=== PATIENT | male | born 1970 | race Caucasian/White ===

== ENCOUNTER 2016-08-12 16:01 | Emergency (ER) | payer MEDICARE, MEDICAID ==
[2016-03-12 09:58] VITALS: BMI 28.1
[~2016-08-12 16:01] MED LIST: ACETAMINOPHEN325 MG PO; ARTIFICIAL TEAR15 ML EACH EYE; ASCORBIC ACID500 MG PO; BACLOFEN20 M1 PO; DANTRIUM25 MG PO; DILANTIN100 MG PO; DULCOLAX10 MG/SUPP RC; EFFEXOR37.5 MG PO; GUAIFENESI100 MG/5 M PO; KEPPRA750 MG PO; KRISTALOSE20 G/PKT PO; LASIX80 MG PO; LIDOCAINE 2 %100 ML PO; LIDOCAINE50 GM TOPICAL; MILK OF MAGNESI30 ML PO; MIRALAX17 GM PO; NATURAL SENNA8.6 MG PO; NEURONTIN 300300 MG PO; NEURONTIN 400400 MG PO; OMEPRAZOLE20 M1 PO; OXYCONTIN10 MG PO; POTASSIUM20 MEQ/11 PO; PROVENTIL/2.5 MG/3 M INH; ROBINUL 1 MG TAB1 MG PO; SEROQUEL25 MG PO; SEROQUEL50 MG PO; THEREMS-M1 TAB PO; VALIUM 2 MG TAB2 MG PO; ZANAFLEX4 MG; ZOFRAN4 MG PO; [UNRECOGNIZED DRUG - OTHER] IV
[2016-08-12 17:11] LABS: APPEARANCE HAZY (CLEAR); BILIRUBIN NEGATIVE (NEGATIVE); COLOR YELLOW (YELLOW); GLUCOSE NEGATIVE (NEGATIVE); KETONE NEGATIVE (NEGATIVE); LEUKOCYTE ESTERASE 2+ (NEGATIVE); NITRITE NEGATIVE (NEGATIVE); PROTEIN NEGATIVE (NEGATIVE); UROBILINOGEN NORMAL (NORMAL)
[2016-08-12 17:14] LABS: BACTERIA MODERATE /hpf (NONE SEEN); EPITHELIAL CELLS 0-5 /hpf (0-5); RED CELLS - URINE 0-5 /hpf (0-5); WHITE CELLS - URINE 25-50 /hpf (0-5); YEAST <1+ /hpf (NONE SEEN)
[2016-08-12 17:22] LABS: BASOPHILS 0.2 % (0.0-2.0); EOSINOPHILS 1.5 % (0-7); HEMATOCRIT 39.9 % (42.0-54.0); HEMOGLOBIN 12.8 g/dL (13.5-17.5); IMMATURE GRANULOCYTES 0.3 % (0-5); LYMPHOCYTES 19.5 % (15-50); MCHC 32.1 g/dL (31.0-37.0); MCV 99.8 fL (80.0-100.0); MEAN PLATELET VOLUME 10.8 fL (7.4-10.4); MONOCYTES 6.4 % (2-11); NEUTROPHILS 72.1 % (40-80); RDW 14.6 % (11.5-14.5); WBC 13.9 10x3/uL (4.8-10.8)
[2016-08-12 17:28] LABS: PLATELET COUNT 177 10x3/uL (130-400)
[2016-08-12 17:40] LABS: ALKALINE PHOSPHATASE 62 U/L (46-116); ALT (SGPT) 28 U/L (10-68); CALC OSMOLALITY 290 mosm/kg (275-300); CARBON DIOXIDE 26.9 mmol/L (21.0-32.0); CHLORIDE - SERUM 107 mmol/L (98-107); CREATININE - SERUM 0.6 mg/dL (0.6-1.3); GLUCOSE 82 mg/dL (74-106); POTASSIUM - SERUM 3.5 mmol/L (3.5-5.1); PROTEIN - SERUM 7.6 g/dL (6.4-8.2); SODIUM 145 mmol/L (136-145); UREA NITROGEN 21 mg/dL (7-18); eGFR NON AFRICAN AMERICAN > 90 mL/min (90-120)
[2016-08-12 17:48] LABS: AMYLASE - SERUM 47 U/L (25-115); LIPASE 110 U/L (73-393); PHENYTOIN (DILANTIN) 6.1 ug/mL (10.0-20.0); PRO BNP 719 pg/mL (0-125); TROPONIN-I < 0.017 ng/mL (0.000-0.060)
== END 2016-08-12 19:14 | disposition home or self-care (01) ==
LOC: D.ER 16:01
PROVIDERS: Family Medicine
DX: H53.9 Unspecified visual disturbance (principal); Z93.3 Colostomy status; K21.9 Gastro-esophageal reflux disease without esophagitis; F41.9 Anxiety disorder, unspecified; F32.9 Major depressive disorder, single episode, unspecified

== ENCOUNTER 2017-12-04 15:53 | Inpatient (IN) | payer MEDICARE, MEDICAID ==
[~2017-12-04] VITALS: Ht 177.8 cm; Wt 119.1 kg
[2017-12-04] VITALS (8 sets, daily range): BP systolic 108–148; BP diastolic 64–84; BMI 34.5
--- NOTE | ~2017-12-04 | EC ---
PATIENT:FABRIZIO BAUTISTA DATE OF SERVICE: 12/04/17 SEX: M MEDICAL RECORD: [id number] DATE OF : [birth year] LOCATION:D.[facility] D.230 AGE OF PATIENT: 47 ADMISSION DATE: 12/04/17 REFERRING PHYSICIAN: INTERPRETING PHYSICIAN: CAYDEN PERDOMO MD ECHOCARDIOGRAM REPORT ECHO CHARGES 5 ECHO LIMITED Date: 12/06 CLINICAL DIAGNOSIS: BILTERAL DVTS ASSESS FOR CLOTS ECHOCARDIOGRAPHIC MEASUREMENTS (adult normal given) AC root (d.<3.7cm) 3.7 cm LV Septum d (<1.2 cm> 1.2 cm Valve Excursion cm LV Septum (systole) 1.7 cm Left Atria (s.<4.0cm> 4.1 cm LVPW d(<1.2cm) 1.5 cm RV (d.<2.3cm) 3.7 cm LVPW (sytole) 1.9 cm LV diastole(<5.6CM) 4.1 cm MV E-F(>70mm/sec) cm LV systole 2.6 cm LVOT Diameter cm MV exc.(>10mm) cm Est.ejection fraction (50-75%) % DOPPLER: LVIT cm/sec A cm/sec E cm/sec LA cm/sec RVSP 19 mmHg LVOT cm/sec AOP1/2T m/s Asc. Ao cm/sec RVOT 68 cm/sec RA cm/sec PA 99 cm/sec AV Gradient Peak mmHg AV Mean mmHg AV Area cm MV Gradient Peak mmHg MV Mean mmHg MV Area cm COMMENTS: Track Repairer: 2 RADHA MORAES Personal Finance Instructor: 4 Dr. Perdomo TAPE# PACS Pericardial Effusion N DATE OF SERVICE: The patient underwent limited echocardiogram showing normal left ventricular function. Left atrium is mildly dilated, but grossly the aortic valve, mitral valve, and tricuspid valve are normal. The RVSP appears to be normal. Right ventricle is mildly dilated. Right atrium is mildly dilated. It is a limited study, but otherwise grossly normal function. We did not see any obvious clots or rouleaux formation; however, a transesophageal echocardiogram may be more specific if clinically helpful. ECHOCARDIOGRAM REPORT [id number] FABRIZIO BAUTISTA TRANSINT:[id number] Voice Confirmation ID: [id number] DOCUMENT ID: [id number] CAYDEN PERDOMO MD at 1120 CC: [id number] DICTATION DATE: 12/06/17 1546 VAMP STITCHER: 12/06/17 1603 ADM IN [place] [id number] [facility], [id number]
[~2017-12-04 15:53] MED LIST changes: +DILANTIN100 MG PEG; -DILANTIN100 MG PO; +KEPPRA500 MG PEG; -KEPPRA750 MG PO
[2017-12-04] MEDS ORDERED: ROBITUSSIN DM 110 ML PEG (16:27)
[2017-12-04] MEDS ORDERED: ATIVAN0.5 MG PEG (16:31)
[2017-12-04] MEDS ORDERED: BENADRYL25 MG PEG (16:33)
[2017-12-04] MEDS ORDERED: OMNICEF300 MG PEG (16:34)
[2017-12-04] MEDS ORDERED: IBUDONE 10-2001 TAB PEG ×2 (16:37→16:38)
[2017-12-04] MEDS ORDERED: PHENERGAN25 M1 PEG (16:45)
[2017-12-04 17:37] LABS: BASOPHILS 0.1 % (0-2); EOSINOPHILS 3.3 % (0-7); HEMATOCRIT 40.4 % (42.0-54.0); HEMOGLOBIN 12.9 g/dL (13.5-17.5); IMMATURE GRANULOCYTES 0.7 % (0-5); LYMPHOCYTES 16.7 % (15-50); MCH 31.4 pg (26.0-34.0); MCHC 31.9 g/dL (31.0-37.0); MCV 98.3 fL (80.0-100.0); MEAN PLATELET VOLUME 10.5 fL (7.4-10.4); MONOCYTES 9.1 % (2-11); NEUTROPHILS 70.1 % (40-80); PLATELET COUNT 200 10x3/uL (130-400); RBC 4.11 10x6/uL (4.20-6.10); RDW 15.4 % (11.5-14.5)
[2017-12-04 18:05] LABS: ALBUMIN 2.8 g/dL (3.4-5.0); ALKALINE PHOSPHATASE 86 U/L (46-116); ALT (SGPT) 19 U/L (10-68); BILIRUBIN - TOTAL 0.35 mg/dL (0.2-1.3); CALC OSMOLALITY 283 mosm/kg (275-300); CALCIUM 9.2 mg/dL (8.5-10.1); CARBON DIOXIDE 27.9 mmol/L (21.0-32.0); CHLORIDE - SERUM 106 mmol/L (98-107); CREATININE - SERUM 0.4 mg/dL (0.6-1.3); GLUCOSE 91 mg/dL (74-106); POTASSIUM - SERUM 4.9 mmol/L (3.5-5.1); SODIUM 143 mmol/L (136-145); UREA NITROGEN 10 mg/dL (7-18); eGFR NON AFRICAN AMERICAN > 90 mL/min (90-120)
[2017-12-04] MEDS ORDERED: THORAZINE25 MG PO ×2 (21:03→21:23)
[2017-12-04] MEDS ORDERED: GUAIFENESI100 MG/5 M PO ×2 (21:15→21:44)
[2017-12-04] MEDS ORDERED: ACETAMINOPHEN325 MG PO (21:16)
[2017-12-04] MEDS ORDERED: LASIX80 MG PO ×2 (21:17→21:31)
[2017-12-04] MEDS ORDERED: PHENYTOIN100 MG/4 M PEG (21:19)
[2017-12-04] MEDS ORDERED: KEPPRA500 MG PO (21:20)
[2017-12-04] MEDS ORDERED: POTASSIUM40 MEQ/15 PO (21:21)
[2017-12-04] MEDS ORDERED: SENNA8.6 MG PO (21:21)
[2017-12-04] MEDS ORDERED: EFFEXOR37.5 MG PO (21:22)
[2017-12-04] MEDS ORDERED: ASCORBIC ACID500 MG PO (21:23)
[2017-12-04] MEDS ORDERED: IBUPROFEN200 MG PO ×2 (21:24→21:41)
[2017-12-04] MEDS ORDERED: BACLOFEN20 M1 PO (21:25)
[2017-12-04] MEDS ORDERED: ZANAFLEX4 MG PO (21:25)
[2017-12-04] MEDS ORDERED: NEURONTIN 300300 MG PO (21:26)
[2017-12-04] MEDS ORDERED: DANTRIUM25 MG PO (21:26)
[2017-12-04] MEDS ORDERED: SEROQUEL25 MG PO (21:27)
[2017-12-04] MEDS ORDERED: OMNICEF300 MG PO (21:27)
[2017-12-04] MEDS ORDERED: ATIVAN0.5 MG PO (21:28)
[2017-12-04] MEDS ORDERED: PHENYTOIN100 MG/4 M PO (21:29)
[2017-12-04] MEDS ORDERED: SEROQUEL50 MG PO (21:29)
[2017-12-04] MEDS ORDERED: POTASSIUM20 MEQ/15 PO (21:32)
[2017-12-04] MEDS ORDERED: MILK OF MAGNESI30 ML PO (21:33)
[2017-12-04] MEDS ORDERED: MIRALAX17 GM PO (21:34)
[2017-12-04] MEDS ORDERED: BENADRYL25 MG PO (21:36)
[2017-12-04] MEDS ORDERED: MAXIFED DM LIQ473 ML PO (21:36)
[2017-12-04] MEDS ORDERED: NEURONTIN 300300 MG PEG (21:37)
[2017-12-04] MEDS ORDERED: ARTIFICIAL TEAR15 ML EACH EYE (21:40)
[2017-12-04] MEDS ORDERED: IMODIUM2 MG PO (21:41)
[2017-12-04] MEDS ORDERED: MAALOX ADVANCE355 ML PO (21:42)
[2017-12-04] MEDS ORDERED: PHENERGAN25 MG/ML IM (21:43)
[2017-12-04] MEDS ORDERED: PHENERGAN25 M1 PO (21:44)
[2017-12-04] MEDS ORDERED: APAP325 MG PO (21:45)
[2017-12-04] MEDS ORDERED: ZOFRAN4 MG PO (21:45)
[2017-12-05] VITALS (25 sets, daily range): BP systolic 86–160; BP diastolic 60–94; Ht 177.8 cm; Wt 119.1 kg
[2017-12-05 04:43] LABS: CALC OSMOLALITY 285 mosm/kg (275-300); CALCIUM 9.3 mg/dL (8.5-10.1); CARBON DIOXIDE 26.4 mmol/L (21.0-32.0); CHLORIDE - SERUM 105 mmol/L (98-107); CREATININE - SERUM 0.3 mg/dL (0.6-1.3); GLUCOSE 98 mg/dL (74-106); POTASSIUM - SERUM 4.3 mmol/L (3.5-5.1); SODIUM 144 mmol/L (136-145); UREA NITROGEN 9 mg/dL (7-18); eGFR NON AFRICAN AMERICAN > 90 mL/min (90-120)
[2017-12-05 05:03] LABS: BASOPHILS 0.2 % (0-2); EOSINOPHILS 2.3 % (0-7); HEMOGLOBIN 13.3 g/dL (13.5-17.5); IMMATURE GRANULOCYTES 0.6 % (0-5); LYMPHOCYTES 9.9 % (15-50); MCH 31.9 pg (26.0-34.0); MCHC 32.4 g/dL (31.0-37.0); MCV 98.3 fL (80.0-100.0); MEAN PLATELET VOLUME 9.6 fL (7.4-10.4); MONOCYTES 6.9 % (2-11); NEUTROPHILS 80.1 % (40-80); RBC 4.17 10x6/uL (4.20-6.10); RDW 15.1 % (11.5-14.5)
[2017-12-05 05:05] LABS: PLATELET COUNT 256 10x3/uL (130-400); WBC 13.3 10x3/uL (4.8-10.8)
[2017-12-06] VITALS (23 sets, daily range): BP systolic 97–157; BP diastolic 54–87
[2017-12-06 04:08] LABS: BASOPHILS 0.2 % (0-2); EOSINOPHILS 1.3 % (0-7); HEMATOCRIT 37.6 % (42.0-54.0); HEMOGLOBIN 11.9 g/dL (13.5-17.5); IMMATURE GRANULOCYTES 1.1 % (0-5); LYMPHOCYTES 22.9 % (15-50); MCHC 31.6 g/dL (31.0-37.0); MCV 97.9 fL (80.0-100.0); MEAN PLATELET VOLUME 9.8 fL (7.4-10.4); MONOCYTES 10.2 % (2-11); NEUTROPHILS 64.3 % (40-80); PLATELET COUNT 258 10x3/uL (130-400); RBC 3.84 10x6/uL (4.20-6.10); RDW 14.9 % (11.5-14.5); WBC 10.2 10x3/uL (4.8-10.8)
[2017-12-06 04:19] LABS: ALBUMIN 2.6 g/dL (3.4-5.0); ALKALINE PHOSPHATASE 75 U/L (46-116); ALT (SGPT) 15 U/L (10-68); BILIRUBIN - TOTAL 0.34 mg/dL (0.2-1.3); CARBON DIOXIDE 27.2 mmol/L (21.0-32.0); CHLORIDE - SERUM 105 mmol/L (98-107); GLUCOSE 104 mg/dL (74-106); MAGNESIUM - SERUM 1.9 mg/dL (1.8-2.4); PHOSPHOROUS 2.8 mg/dL (2.5-4.9); PROTEIN - SERUM 7.6 g/dL (6.4-8.2); SODIUM 143 mmol/L (136-145)
[2017-12-06 04:28] LABS: CALC OSMOLALITY 284 mosm/kg (275-300); CREATININE - SERUM 0.5 mg/dL (0.6-1.3); UREA NITROGEN 12 mg/dL (7-18); eGFR NON AFRICAN AMERICAN > 90 mL/min (90-120)
[2017-12-07] VITALS (23 sets, daily range): BP systolic 93–125; BP diastolic 59–83
[2017-12-07 04:52] LABS: BASOPHILS 0.4 % (0-2); HEMATOCRIT 37.6 % (42.0-54.0); HEMOGLOBIN 12.4 g/dL (13.5-17.5); IMMATURE GRANULOCYTES 1.4 % (0-5); LYMPHOCYTES 24.9 % (15-50); MCH 31.9 pg (26.0-34.0); MCV 96.7 fL (80.0-100.0); MEAN PLATELET VOLUME 9.6 fL (7.4-10.4); NEUTROPHILS 56.3 % (40-80); PLATELET COUNT 288 10x3/uL (130-400); RBC 3.89 10x6/uL (4.20-6.10); RDW 14.9 % (11.5-14.5); WBC 8.5 10x3/uL (4.8-10.8)
[2017-12-07 05:00] LABS: ALBUMIN 2.7 g/dL (3.4-5.0); ALKALINE PHOSPHATASE 73 U/L (46-116); BILIRUBIN - TOTAL 0.25 mg/dL (0.2-1.3); CALC OSMOLALITY 289 mosm/kg (275-300); CALCIUM 9.2 mg/dL (8.5-10.1); CARBON DIOXIDE 30.6 mmol/L (21.0-32.0); CHLORIDE - SERUM 107 mmol/L (98-107); CREATININE - SERUM 0.5 mg/dL (0.6-1.3); GLUCOSE 94 mg/dL (74-106); MAGNESIUM - SERUM 1.9 mg/dL (1.8-2.4); PHOSPHOROUS 2.9 mg/dL (2.5-4.9); POTASSIUM - SERUM 3.3 mmol/L (3.5-5.1); PROTEIN - SERUM 7.9 g/dL (6.4-8.2); SODIUM 146 mmol/L (136-145); UREA NITROGEN 11 mg/dL (7-18); eGFR NON AFRICAN AMERICAN > 90 mL/min (90-120)
[2017-12-07 05:13] LABS: ALT (SGPT) 25 U/L (10-68)
[2017-12-07 16:09] LABS: AFB SPECIMEN PROCESSING Concentration (())
[2017-12-08] VITALS (24 sets, daily range): BP systolic 89–116; BP diastolic 57–79
[2017-12-08 05:58] LABS: BASOPHILS 0.1 % (0-2); EOSINOPHILS 2.3 % (0-7); HEMATOCRIT 38.7 % (42.0-54.0); HEMOGLOBIN 12.9 g/dL (13.5-17.5); IMMATURE GRANULOCYTES 0.8 % (0-5); LYMPHOCYTES 12.5 % (15-50); MCH 32.3 pg (26.0-34.0); MCHC 33.3 g/dL (31.0-37.0); MCV 96.8 fL (80.0-100.0); MEAN PLATELET VOLUME 9.7 fL (7.4-10.4); MONOCYTES 7.2 % (2-11); NEUTROPHILS 77.1 % (40-80); PLATELET COUNT 331 10x3/uL (130-400); WBC 10.3 10x3/uL (4.8-10.8)
[2017-12-08 06:35] LABS: ALBUMIN 2.7 g/dL (3.4-5.0); ALKALINE PHOSPHATASE 71 U/L (46-116); ALT (SGPT) 19 U/L (10-68); BILIRUBIN - TOTAL 0.22 mg/dL (0.2-1.3); CALC OSMOLALITY 292 mosm/kg (275-300); CALCIUM 9.2 mg/dL (8.5-10.1); CARBON DIOXIDE 30.1 mmol/L (21.0-32.0); CHLORIDE - SERUM 108 mmol/L (98-107); CREATININE - SERUM 0.5 mg/dL (0.6-1.3); GLUCOSE 136 mg/dL (74-106); POTASSIUM - SERUM 3.7 mmol/L (3.5-5.1); PROTEIN - SERUM 8.1 g/dL (6.4-8.2); SODIUM 147 mmol/L (136-145); UREA NITROGEN 10 mg/dL (7-18); eGFR NON AFRICAN AMERICAN > 90 mL/min (90-120)
[2017-12-09] VITALS (23 sets, daily range): BP systolic 94–134; BP diastolic 56–87
[2017-12-09 05:14] LABS: ALBUMIN 2.7 g/dL (3.4-5.0); ALKALINE PHOSPHATASE 60 U/L (46-116); ALT (SGPT) 17 U/L (10-68); CALC OSMOLALITY 291 mosm/kg (275-300); CALCIUM 8.8 mg/dL (8.5-10.1); CARBON DIOXIDE 30.7 mmol/L (21.0-32.0); CHLORIDE - SERUM 109 mmol/L (98-107); CREATININE - SERUM 0.4 mg/dL (0.6-1.3); GLUCOSE 120 mg/dL (74-106); POTASSIUM - SERUM 3.3 mmol/L (3.5-5.1); PROTEIN - SERUM 7.9 g/dL (6.4-8.2); SODIUM 146 mmol/L (136-145); eGFR NON AFRICAN AMERICAN > 90 mL/min (90-120)
[2017-12-09 05:29] LABS: UREA NITROGEN 13 mg/dL (7-18)
[2017-12-09 13:15] LABS: FUNGUS STAIN Final report (())
[2017-12-10] VITALS (25 sets, daily range): BP systolic 104–166; BP diastolic 63–96
[2017-12-10 05:12] LABS: BASOPHILS 0.3 % (0-2); EOSINOPHILS 6.1 % (0-7); HEMATOCRIT 39.4 % (42.0-54.0); HEMOGLOBIN 12.7 g/dL (13.5-17.5); IMMATURE GRANULOCYTES 1.9 % (0-5); MCH 31.3 pg (26.0-34.0); MCHC 32.2 g/dL (31.0-37.0); MEAN PLATELET VOLUME 9.9 fL (7.4-10.4); MONOCYTES 10.8 % (2-11); NEUTROPHILS 55.9 % (40-80); PLATELET COUNT 316 10x3/uL (130-400); RBC 4.06 10x6/uL (4.20-6.10); RDW 15.1 % (11.5-14.5); WBC 8.6 10x3/uL (4.8-10.8)
[2017-12-10 05:41] LABS: ALBUMIN 2.8 g/dL (3.4-5.0); ALKALINE PHOSPHATASE 61 U/L (46-116); ALT (SGPT) 18 U/L (10-68); CALC OSMOLALITY 294 mosm/kg (275-300); CALCIUM 8.9 mg/dL (8.5-10.1); CARBON DIOXIDE 29.3 mmol/L (21.0-32.0); CHLORIDE - SERUM 108 mmol/L (98-107); CREATININE - SERUM 0.5 mg/dL (0.6-1.3); GLUCOSE 118 mg/dL (74-106); POTASSIUM - SERUM 3.6 mmol/L (3.5-5.1); PROTEIN - SERUM 8.1 g/dL (6.4-8.2); SODIUM 147 mmol/L (136-145); eGFR NON AFRICAN AMERICAN > 90 mL/min (90-120)
[2017-12-10 05:52] LABS: UREA NITROGEN 17 mg/dL (7-18)
[2017-12-10 22:10] LABS: AFB SPECIMEN PROCESSING Concentration (())
[2017-12-11] VITALS (25 sets, daily range): BP systolic 89–132; BP diastolic 46–80
[2017-12-11 04:55] LABS: BASOPHILS 0.4 % (0-2); EOSINOPHILS 6.2 % (0-7); HEMOGLOBIN 13.8 g/dL (13.5-17.5); IMMATURE GRANULOCYTES 1.9 % (0-5); LYMPHOCYTES 25.5 % (15-50); MCH 31.7 pg (26.0-34.0); MCHC 32.9 g/dL (31.0-37.0); MCV 96.6 fL (80.0-100.0); MEAN PLATELET VOLUME 9.9 fL (7.4-10.4); MONOCYTES 8.8 % (2-11); NEUTROPHILS 57.2 % (40-80); RBC 4.35 10x6/uL (4.20-6.10); RDW 15.2 % (11.5-14.5); WBC 10.7 10x3/uL (4.8-10.8)
[2017-12-11 05:13] LABS: CALCIUM 9.1 mg/dL (8.5-10.1); CARBON DIOXIDE 28.8 mmol/L (21.0-32.0); CHLORIDE - SERUM 106 mmol/L (98-107); CREATININE - SERUM 0.6 mg/dL (0.6-1.3); GLUCOSE 122 mg/dL (74-106); SODIUM 148 mmol/L (136-145); eGFR NON AFRICAN AMERICAN > 90 mL/min (90-120)
[2017-12-11 05:15] LABS: CALC OSMOLALITY 297 mosm/kg (275-300); UREA NITROGEN 22 mg/dL (7-18)
[2017-12-11 05:16] LABS: PLATELET COUNT 399 10x3/uL (130-400)
[2017-12-11 15:25] LABS: FUNGUS STAIN Final report (())
[2017-12-12] VITALS (25 sets, daily range): BP systolic 90–133; BP diastolic 54–108
[2017-12-12 03:32] LABS: BASOPHILS 0.8 % (0-2); EOSINOPHILS 4.7 % (0-7); HEMATOCRIT 36.7 % (42.0-54.0); HEMOGLOBIN 12.5 g/dL (13.5-17.5); IMMATURE GRANULOCYTES 0.6 % (0-5); LYMPHOCYTES 24.3 % (15-50); MCH 31.3 pg (26.0-34.0); MCHC 34.1 g/dL (31.0-37.0); MEAN PLATELET VOLUME 10.6 fL (7.4-10.4); NEUTROPHILS 57.6 % (40-80); RDW 14.2 % (11.5-14.5)
[2017-12-12 03:35] LABS: MCV 91.8 fL (80.0-100.0); PLATELET COUNT 243 10x3/uL (130-400); WBC 6.4 10x3/uL (4.8-10.8)
[2017-12-12 03:39] LABS: ANION GAP 10.7 mmol/L (8-16); CALCIUM 8.2 mg/dL (8.5-10.1); CARBON DIOXIDE 31.4 mmol/L (21.0-32.0); POTASSIUM - SERUM 3.1 mmol/L (3.5-5.1)
[2017-12-12 03:40] LABS: CREATININE - SERUM 1.3 mg/dL (0.6-1.3)
[2017-12-13] VITALS (22 sets, daily range): BP systolic 95–121; BP diastolic 58–91
[2017-12-13 03:53] LABS: BASOPHILS 0.4 % (0-2); EOSINOPHILS 7.7 % (0-7); HEMATOCRIT 36.7 % (42.0-54.0); HEMOGLOBIN 11.9 g/dL (13.5-17.5); IMMATURE GRANULOCYTES 2.2 % (0-5); LYMPHOCYTES 33.2 % (15-50); MCH 31.3 pg (26.0-34.0); MCHC 32.4 g/dL (31.0-37.0); MONOCYTES 11.9 % (2-11); NEUTROPHILS 44.6 % (40-80); RDW 15.1 % (11.5-14.5); WBC 7.4 10x3/uL (4.8-10.8)
[2017-12-13 03:59] LABS: MCV 96.6 fL (80.0-100.0); PLATELET COUNT 366 10x3/uL (130-400)
[2017-12-13 04:02] LABS: CALCIUM 8.6 mg/dL (8.5-10.1); CARBON DIOXIDE 28.1 mmol/L (21.0-32.0); CHLORIDE - SERUM 109 mmol/L (98-107); POTASSIUM - SERUM 3.5 mmol/L (3.5-5.1); SODIUM 144 mmol/L (136-145)
[2017-12-13 04:07] LABS: CALC OSMOLALITY 288 mosm/kg (275-300); CREATININE - SERUM 0.3 mg/dL (0.6-1.3); GLUCOSE 103 mg/dL (74-106); UREA NITROGEN 17 mg/dL (7-18); eGFR NON AFRICAN AMERICAN > 90 mL/min (90-120)
[2017-12-14] VITALS (23 sets, daily range): BP systolic 96–140; BP diastolic 53–879
[2017-12-14 06:13] LABS: BASOPHILS 0.3 % (0-2); HEMATOCRIT 35.6 % (42.0-54.0); HEMOGLOBIN 11.5 g/dL (13.5-17.5); IMMATURE GRANULOCYTES 0.9 % (0-5); LYMPHOCYTES 19.4 % (15-50); MCH 31.3 pg (26.0-34.0); MCHC 32.3 g/dL (31.0-37.0); MEAN PLATELET VOLUME 9.8 fL (7.4-10.4); MONOCYTES 7.6 % (2-11); NEUTROPHILS 68.8 % (40-80); PLATELET COUNT 405 10x3/uL (130-400); RBC 3.67 10x6/uL (4.20-6.10); RDW 15.4 % (11.5-14.5)
[2017-12-14 06:20] LABS: CALC OSMOLALITY 288 mosm/kg (275-300); CALCIUM 8.7 mg/dL (8.5-10.1); CARBON DIOXIDE 25.9 mmol/L (21.0-32.0); CHLORIDE - SERUM 109 mmol/L (98-107); CREATININE - SERUM 0.4 mg/dL (0.6-1.3); GLUCOSE 117 mg/dL (74-106); POTASSIUM - SERUM 3.6 mmol/L (3.5-5.1); SODIUM 144 mmol/L (136-145); UREA NITROGEN 16 mg/dL (7-18); eGFR NON AFRICAN AMERICAN > 90 mL/min (90-120)
[2017-12-14 06:56] LABS: WBC 13.2 10x3/uL (4.8-10.8)
[2017-12-15] VITALS (24 sets, daily range): BP systolic 93–131; BP diastolic 47–92
[2017-12-15 04:33] LABS: CALC OSMOLALITY 283 mosm/kg (275-300); CARBON DIOXIDE 25.6 mmol/L (21.0-32.0); CHLORIDE - SERUM 109 mmol/L (98-107); CREATININE - SERUM 0.4 mg/dL (0.6-1.3); GLUCOSE 123 mg/dL (74-106); POTASSIUM - SERUM 3.6 mmol/L (3.5-5.1); SODIUM 142 mmol/L (136-145); UREA NITROGEN 13 mg/dL (7-18); eGFR NON AFRICAN AMERICAN > 90 mL/min (90-120)
[2017-12-15 10:48] LABS: BASOPHILS 0.4 % (0-2); HEMATOCRIT 38.6 % (42.0-54.0); HEMOGLOBIN 12.1 g/dL (13.5-17.5); LYMPHOCYTES 26.3 % (15-50); MCHC 31.3 g/dL (31.0-37.0); MONOCYTES 10.7 % (2-11); NEUTROPHILS 57.6 % (40-80); PLATELET COUNT 436 10x3/uL (130-400); RDW 15.5 % (11.5-14.5)
[2017-12-16] VITALS (24 sets, daily range): BP systolic 83–129; BP diastolic 58–90
[2017-12-16 06:01] LABS: BASOPHILS 0.2 % (0-2); HEMATOCRIT 39.3 % (42.0-54.0); HEMOGLOBIN 12.8 g/dL (13.5-17.5); IMMATURE GRANULOCYTES 0.6 % (0-5); MCH 31.6 pg (26.0-34.0); MCHC 32.6 g/dL (31.0-37.0); MEAN PLATELET VOLUME 10.1 fL (7.4-10.4); MONOCYTES 4.7 % (2-11); NEUTROPHILS 76.5 % (40-80); PLATELET COUNT 470 10x3/uL (130-400); RBC 4.05 10x6/uL (4.20-6.10); RDW 15.5 % (11.5-14.5)
[2017-12-16 06:08] LABS: WBC 16.7 10x3/uL (4.8-10.8)
[2017-12-16 06:09] LABS: CALC OSMOLALITY 290 mosm/kg (275-300); CALCIUM 9.2 mg/dL (8.5-10.1); CARBON DIOXIDE 26.2 mmol/L (21.0-32.0); CHLORIDE - SERUM 110 mmol/L (98-107); CREATININE - SERUM 0.3 mg/dL (0.6-1.3); GLUCOSE 126 mg/dL (74-106); POTASSIUM - SERUM 3.9 mmol/L (3.5-5.1); SODIUM 145 mmol/L (136-145); UREA NITROGEN 13 mg/dL (7-18); eGFR NON AFRICAN AMERICAN > 90 mL/min (90-120)
[2017-12-17] VITALS (14 sets, daily range): BP systolic 95–125; BP diastolic 57–81
[2017-12-17 05:01] LABS: BASOPHILS 0.4 % (0-2); EOSINOPHILS 4.3 % (0-7); HEMATOCRIT 39.9 % (42.0-54.0); HEMOGLOBIN 12.9 g/dL (13.5-17.5); IMMATURE GRANULOCYTES 0.6 % (0-5); LYMPHOCYTES 27.3 % (15-50); MCH 31.8 pg (26.0-34.0); MCHC 32.3 g/dL (31.0-37.0); MCV 98.3 fL (80.0-100.0); MONOCYTES 10.6 % (2-11); NEUTROPHILS 56.8 % (40-80); PLATELET COUNT 440 10x3/uL (130-400); RBC 4.06 10x6/uL (4.20-6.10); RDW 15.5 % (11.5-14.5)
[2017-12-17 05:09] LABS: WBC 10.4 10x3/uL (4.8-10.8)
[2017-12-17 05:24] LABS: CALC OSMOLALITY 287 mosm/kg (275-300); CALCIUM 9.5 mg/dL (8.5-10.1); CARBON DIOXIDE 27.8 mmol/L (21.0-32.0); CHLORIDE - SERUM 108 mmol/L (98-107); GLUCOSE 102 mg/dL (74-106); MAGNESIUM - SERUM 2.2 mg/dL (1.8-2.4); PHOSPHOROUS 3.8 mg/dL (2.5-4.9); POTASSIUM - SERUM 3.7 mmol/L (3.5-5.1); SODIUM 144 mmol/L (136-145); UREA NITROGEN 14 mg/dL (7-18)
[2017-12-17 05:27] LABS: CREATININE - SERUM 0.4 mg/dL (0.6-1.3)
[2017-12-17 05:28] LABS: eGFR NON AFRICAN AMERICAN > 90 mL/min (90-120)
[2017-12-17] MEDS ORDERED: MUCOMYST 20200 MG/M2 INH (11:43)
[2018-01-06 08:08] LABS: FUNGUS MYCOLOGY CULTURE Final report (())
[2018-01-07 07:28] LABS: FUNGUS MYCOLOGY CULTURE Final report (())
[2018-01-27 10:12] LABS: ACID FAST CULTURE Negative (()); ACID FAST SMEAR Negative (())
[2018-02-01 13:11] LABS: ACID FAST CULTURE Negative (()); ACID FAST SMEAR Negative (())
== END 2017-12-17 15:25 | DRG 871 ==
LOC: D.ER 15:53 → D.ICU 18:40 → D.EDHOLD 18:40 → D.ICU 19:01
PROVIDERS: Emergency Medicine; Family Medicine; Internal Medicine Nephrology; Internal Medicine Pulmonary Disease
PROC: 5A1945Z Respiratory Ventilation, 24-96 Consecutive Hours (ICD-10-PCS; principal; 2017-12-04)
PROC: 05H633Z Insertion of Infusion Device into Left Subclavian Vein, Percutaneous Approach (ICD-10-PCS; 2017-12-05)
PROC: 0BDB8ZX Extraction of Left Lower Lobe Bronchus, Via Natural or Artificial Opening Endoscopic, Diagnostic (ICD-10-PCS; 2017-12-05)
PROC: 0B928ZX Drainage of Carina, Via Natural or Artificial Opening Endoscopic, Diagnostic (ICD-10-PCS; 2017-12-05)
PROC: 0B948ZX Drainage of Right Upper Lobe Bronchus, Via Natural or Artificial Opening Endoscopic, Diagnostic (ICD-10-PCS; 2017-12-05)
PROC: 0B988ZX Drainage of Left Upper Lobe Bronchus, Via Natural or Artificial Opening Endoscopic, Diagnostic (ICD-10-PCS; 2017-12-05)
PROC: 0B918ZX Drainage of Trachea, Via Natural or Artificial Opening Endoscopic, Diagnostic (ICD-10-PCS; 2017-12-05)
PROC: 0B958ZX Drainage of Right Middle Lobe Bronchus, Via Natural or Artificial Opening Endoscopic, Diagnostic (ICD-10-PCS; 2017-12-05)
PROC: 0B938ZX Drainage of Right Main Bronchus, Via Natural or Artificial Opening Endoscopic, Diagnostic (ICD-10-PCS; 2017-12-05)
PROC: 0B978ZX Drainage of Left Main Bronchus, Via Natural or Artificial Opening Endoscopic, Diagnostic (ICD-10-PCS; 2017-12-05)
PROC: 0B968ZX Drainage of Right Lower Lobe Bronchus, Via Natural or Artificial Opening Endoscopic, Diagnostic (ICD-10-PCS; 2017-12-05)
PROC: 0B9B8ZX Drainage of Left Lower Lobe Bronchus, Via Natural or Artificial Opening Endoscopic, Diagnostic (ICD-10-PCS; 2017-12-05)
PROC: 0B998ZX Drainage of Lingula Bronchus, Via Natural or Artificial Opening Endoscopic, Diagnostic (ICD-10-PCS; 2017-12-05)
PROC: 0BCB8ZZ Extirpation of Matter from Left Lower Lobe Bronchus, Via Natural or Artificial Opening Endoscopic (ICD-10-PCS; 2017-12-05)
PROC: 0BC88ZZ Extirpation of Matter from Left Upper Lobe Bronchus, Via Natural or Artificial Opening Endoscopic (ICD-10-PCS; 2017-12-05)
PROC: 0B978ZZ Drainage of Left Main Bronchus, Via Natural or Artificial Opening Endoscopic (ICD-10-PCS; 2017-12-07)
PROC: 0B938ZZ Drainage of Right Main Bronchus, Via Natural or Artificial Opening Endoscopic (ICD-10-PCS; 2017-12-07)
DX: A41.9 Sepsis, unspecified organism (principal); J18.9 Pneumonia, unspecified organism; J96.21 Acute and chronic respiratory failure with hypoxia; G82.50 Quadriplegia, unspecified; J98.11 Atelectasis; J90 Pleural effusion, not elsewhere classified; I82.403 Acute embolism and thrombosis of unspecified deep veins of lower extremity, bilateral; J94.2 Hemothorax; Y95 Nosocomial condition; Z93.0 Tracheostomy status; F03.90 Unspecified dementia, unspecified severity, without behavioral disturbance, psychotic disturbance, mood disturbance, and anxiety; F32.9 Major depressive disorder, single episode, unspecified; G40.909 Epilepsy, unspecified, not intractable, without status epilepticus; I10 Essential (primary) hypertension; R13.10 Dysphagia, unspecified; R21 Rash and other nonspecific skin eruption; E87.6 Hypokalemia; R60.0 Localized edema; N31.9 Neuromuscular dysfunction of bladder, unspecified